=== PATIENT | male | born 1995 | race African-American/Black ===

== ENCOUNTER 2021-07-09 03:42 | Emergency (ER) | payer BC, SELFPAY ==
--- NOTE | ~2021-07-09 | XR_ITS ---
EXAMINATION: XR chest 1V portable EXAM DATE: 07/09/2021 04:36 INDICATION: Cough, Midsternal Pain, No Cardiac Hx TECHNIQUE: Portable AP frontal chest x-ray was obtained. There is no prior study for comparison. FINDINGS: The lungs are clear. There are no pleural effusions. Cardiac silhouette is prominent but magnified on this AP technique. There is no pneumothorax suspected. The bones and soft tissues are unremarkable. IMPRESSION: No acute cardiopulmonary findings. Reviewed, dictated and finalized at location A.
[2021-07-09 03:49] VITALS: BP 104/80; PULSE 92; RESP 17; TEMP 36.7; O2SAT 94
[2021-07-09 04:05] VITALS: BP 120/94; PULSE 100; RESP 17; TEMP 36.7; O2SAT 100
--- NOTE | 2021-07-09 04:15 | ECG_ITS ---
Measurements Intervals [place] Rate: 83 P: 55 GA: 132 QRS: 23 QRSD: 90 T: 21 QT: 339 QTc: 399 Interpretive Statements SINUS RHYTHM EARLY PRECORDIAL R/S TRANSITION ST ELEVATION IN ANTEROLAT/HIGH LAT LEADS- PROBABLY EARLY REPOLARIZATION ABNORMALITY BASELINE ARTIFACT- I, II, III, AVR, AVL, AVF, V1, V4-V6 BORDERLINE ECG Electronically Signed On 07-09-2021 7:10:22 CDT by Ramiro Porras D.O.
[2021-07-09 04:30] VITALS: RESP 17
--- NOTE | 2021-07-09 04:37 | ED.GENADULT ---
HPI - General Adult General Chief complaint: Unspecified Stated complaint: shortness of breath, swollen lymph nodes Time Seen by Provider: 07/09/21 04:02 History of Present Illness HPI narrative: Patient 26-year-old gentleman who presents the emergency department with chief complaint of sore throat swollen lymph nodes cough chest discomfort and I think I have an STD. Patient states that he was recently treated for trichomonas but did not take the antibiotics patient states that he has had a cough has had some discomfort in his chest and reports that he was afraid that he may have COVID-19. Patient states he is also had a sore throat and had had some swollen lymph nodes present on the right side of his neck. Patient states that symptoms are not improved by anything or they worsened by anything. Related Data Allergies Allergy/AdvReac Type Severity Reaction Status Date / Time No Known Allergies Allergy Verified 07/09/21 04:11 Review of Systems Review of Systems: A 10 system review of systems was completed on the patient and is negative except for what is stated in the HPI. Nursing and ancillary documentation was reviewed. Exam Narrative: GENERAL: Well-appearing, well-nourished, and in no acute distress. HEAD: Normocephalic, atraumatic. EYES: PERRLA and EOMI. ENT: Nares clear, no rhinorrhea or epistaxis. Mucous membranes moist. NECK: Supple. CHEST: Clear to auscultation. No respiratory distress. HEART: Regular rate and rhythm. No murmur heard. Normal peripheral pulses. ABDOMEN: Soft, nontender, nondistended, normal active bowel sounds. EXTREMITIES: Normal range of motion. No edema. SKIN: Warm, dry, no rash. NEURO: No focal deficits. Alert and oriented x3. PSYCH: Normal mood and affect. Course Course Emergency Course: EKG shows a sinus rhythm rate of [address] elevation or ST depression Vital Signs Vital signs: Vital Signs Temperature 36.7 C 07/09/21 03:49 Pulse Rate 92 07/09/21 03:49 Respiratory Rate 17 07/09/21 03:49 Blood Pressure 104/80 07/09/21 03:49 Pulse Oximetry 94 07/09/21 03:49 Temperature 36.7 C 07/09/21 04:05 Pulse Rate 100 07/09/21 04:05 Respiratory Rate 17 07/09/21 04:05 Blood Pressure 120/94 H 07/09/21 04:05 Pulse Oximetry 100 07/09/21 04:05 Medical Decision Making Vital Signs Vital Signs: Vital Signs Temperature 36.7 C 07/09/21 03:49 Pulse Rate 92 07/09/21 03:49 Respiratory Rate 17 07/09/21 03:49 Blood Pressure 104/80 07/09/21 03:49 Pulse Oximetry 94 07/09/21 03:49 Temperature 36.7 C 07/09/21 04:05 Pulse Rate 100 07/09/21 04:05 Respiratory Rate 17 07/09/21 04:05 Blood Pressure 120/94 H 07/09/21 04:05 Pulse Oximetry 100 07/09/21 04:05 Lab Data Labs: Lab Results 07/09/21 Range/Units 04:24 SARS-CoV-2 RNA (RT-PCR) Pending Influenza A Screen Negative Reference Range: Negative Influenza B Screen Negative Reference Range: Negative Strep Screen Presumptive Negative *(Reference Range: Negative)* Discharge Plan Discharge Clinical Impression: Urethritis URI (upper respiratory infection) Qualifiers: URI type: unspecified URI Qualified Code(s): J06.9 - Acute upper respiratory infection, unspecified Pharyngitis Qualifiers: Pharyngitis/tonsillitis etiology: unspecified etiology Qualified Code(s): J02.9 - Acute pharyngitis, unspecified Patient Disposition: Home, Self-Care Condition: Stable Instructions: Antibiotic Form, Sexually Transmitted Diseases (ED), Upper Respiratory Infection (ED) Additional Instructions: You were tested for COVID-19 this test will take 1 to 2 days you may find your results on the portal. You were also tested for chlamydia and gonorrhea these test will be available in several days Prescriptions:
[2021-07-09] MEDS: DOXYCYCLINE HYCLATE 100 MG TABLET PO (05:00)
[2021-07-09] MEDS: metroNIDAZOLE 250 MG TABLET 2000 MG PO (05:01)
[2021-07-09] MEDS: LIDOCAINE HCL 1% LOCAL INJ 20 ML VIAL (05:02)
[2021-07-09] MEDS: cefTRIAXone 1 GM VIAL 0.5 GM IM (05:02)
[2021-07-09 05:43] VITALS: BP 127/89; PULSE 78; RESP 16; O2SAT 100
[2021-07-09 19:23] LABS: SARS-CoV-2 RNA PCR Positive
== END 2021-07-09 05:45 | disposition home or self-care (01) ==
LOC: ANHED 04:56
PROVIDERS: Emergency Provider Emergency Medicine; PCP Physician Assistant
DX: U07.1 COVID-19 (principal); J06.9 Acute upper respiratory infection, unspecified; J02.9 Acute pharyngitis, unspecified; N34.2 Other urethritis; R94.31 Abnormal electrocardiogram [ECG] [EKG]
CPT/HCPCS: 71045; 87081; 87491; 87591; 87804; 87880; 93005; 96372; 99283; A9270; C9803; J0696; U0003; U0005